=== PATIENT | male | born 1995 | race Caucasian/White ===

== ENCOUNTER 2017-01-16 07:33 | Emergency (ER) | payer BC ==
[~2017-01-16] VITALS: Ht 185.4 cm; Wt 92.9 kg
[~2017-01-16 07:33] MED LIST: ALBU1AER9 INH; CETI10TA84 PO; CLON0.5T3 PO; CTP/1 PO; SERT-234 PO; VANC1CAP19 PO
[2017-01-16 07:36] VITALS: Ht 185.4 cm; Wt 92.9 kg
--- NOTE | 2017-01-16 08:07 | EMERGENCY ROOM VISIT NOTE ---
History Report prepared by Landon: Tania Abebe Under the Supervision of: Dr. Hazel Hastings M.D. First contact with patient: 07:50 Chief Complaint: MENTAL HEALTH EVALUATION Stated Complaint: DEPRESSION, ANXIETY, SUICIDAL THOUGHTS History of Present Illness The patient is a 21 year old male who presents to the Emergency Room for a mental health evaluation. The patient states that he has a history of anxiety and depression. Last year he was admitted for a suicide attempt. He states that he used a knife. The patient after treatment states he was doing much better until recently he began to feel depressed and anxious. He went to [facility] for counseling and to meet with a psychiatrist. He notes he did not get along well with the psychiatrist. The patient states that last week his symptoms worsened. He was talking to his girlfriend about life plans and what he wanted to do with his future. He responded by saying he wants to take a bullet to his head. He denies threatening his girlfriend. The patient states that he does not have access to a gun. He notes he has also thought about using a knife again. The patient states how easy he thinks it would be to kill himself. He does note that he always has a passive desire to commit suicide but does not act on it. He wants to get this back to the safe level he tries to keep it at. The patient states he believes he is in a better place than he was last week when talking with his girlfriend but wants help getting back to baseline. The patient has recently been switched medications by the psychiatrist at [facility]. He states that he was taking Zoloft. He has not taken any medications recently due to insurance not covering. The patient denies alcohol or drug use. Source of History: patient Onset: last week Position: other (global) Quality: other (mental health evaluation) Timing: constant Note: The patient is experiencing depression, anxiety, suicidal ideation. He denies homicidal ideation. Review of Systems See HPI for pertinent positives & negatives. A total of 10 systems reviewed and were otherwise negative. Past Medical & Surgical Medical Problems: (1) Anxiety (2) Depression (3) Hypokalemia, gastrointestinal losses Family History Patient reports no known family medical history. Social History Smoking Status: Never Smoker Alcohol Use: occasionally Drug Use: none Marital Status: single, in relationship Housing Status: lives with roommate Occupation Status: [employer] student Current/Historical Medications No Active Prescriptions or Reported Meds Allergies Coded Allergies: No Known Allergies (Unverified , `, 01/16/17) Physical Exam Vital Signs Date Time Temp Pulse Resp B/P (MAP) Pulse Ox O2 Delivery O2 Flow Rate FiO2 01/16/17 12:57 36.7 60 18 148/87 98 01/16/17 11:08 60 18 148/87 98 Room Air 01/16/17 10:29 76 18 119/86 97 Room Air 01/16/17 07:36 36.7 70 18 144/91 99 Room Air Physical Exam Vital signs reviewed. General: Well-appearing male, in no significant distress. Repetitive blinking. HEENT: No scleral icterus, PERRLA, neck supple. Atraumatic. Cardiovascular: Regular rate and rhythm, no extra sounds. Pulmonary: Clear to auscultation bilaterally, normal work of breathing. Abdomen: Soft, nontender, nondistended, positive bowel sounds. Musculoskeletal: Atraumatic, no peripheral edema. Neurologic: Patient awake alert and oriented x 3 Skin: Warm, dry, no rash Psych: Passive suicidal thoughts, no homicidal ideation. Medical Decision & Procedures Laboratory Results 01/16/17 08:33 Red Blood Count 5.08, Mean Corpuscular Volume 85.8, Mean Corpuscular Hemoglobin 30.5, Mean Corpuscular Hemoglobin Concent 35.6, Mean Platelet Volume 9.2, Neutrophils (%) (Auto) 48.8, Lymphocytes (%) (Auto) 29.5, Monocytes (%) (Auto) 10.1, Eosinophils (%) (Auto) 10.5, Basophils (%) (Auto) 1.1, Neutrophils # (Auto ) 2.66, Lymphocytes # (Auto) 1.61, Monocytes # (Auto) 0.55, Eosinophils # (Auto ) 0.57, Basophils # (Auto) 0.06 01/16/17 08:33 Test 01/16/17 00:00 01/16/17 08:33 Urine Color DK YELLOW Urine Appearance CLEAR (CLEAR) Urine pH 5.0 (4.5-7.5) Urine Specific [place] 1.033 (1.000-1.030) Urine Protein NEG (NEG) Urine Glucose (UA) NEG (NEG) Urine Ketones NEG (NEG) Urine Occult Blood NEG (NEG) Urine Nitrite NEG (NEG) Urine Bilirubin NEG (NEG) Urine Urobilinogen NEG (NEG) Urine Leukocyte Esterase NEG (NEG) Urine Opiates Screen NEG (NEG) Urine Methadone, Qualitative NEG (NEG) Urine Barbiturates NEG (NEG) Urine Phencyclidine (PCP) Level NEG (NEG) Ur Amphetamine/Methamphetamine NEG (NEG) MDMA (Ecstasy) Screen NEG (NEG) Urine Benzodiazepines Screen NEG (NEG) Urine Cocaine Metabolite NEG (NEG) Urine Marijuana (THC) NEG (NEG) White Blood Count 5.45 K/uL (4.8-10.8) Red Blood Count 5.08 M/uL (4.7-6.1) Hemoglobin 15.5 g/dL (14.0-18.0) Hematocrit 43.6 % (42-52) Mean Corpuscular Volume 85.8 fL (80-100) Mean Corpuscular Hemoglobin 30.5 pg (25-34) Mean Corpuscular Hemoglobin Concent 35.6 g/dl (32-36) Platelet Count 307 K/uL (130-400) Mean Platelet Volume 9.2 fL (7.4-10.4) Neutrophils (%) (Auto) 48.8 % Lymphocytes (%) (Auto) 29.5 % Monocytes (%) (Auto) 10.1 % Eosinophils (%) (Auto) 10.5 % Basophils (%) (Auto) 1.1 % Neutrophils # (Auto) 2.66 K/uL (1.4-6.5) Lymphocytes # (Auto) 1.61 K/uL (1.2-3.4) Monocytes # (Auto) 0.55 K/uL (0.11-0.59) Eosinophils # (Auto) 0.57 K/uL (0-0.5) Basophils # (Auto) 0.06 K/uL (0-0.2) RDW Standard Deviation 42.3 fL (36.4-46.3) RDW Coefficient of Variation 13.4 % (11.5-14.5) Immature Granulocyte % (Auto) 0.0 % Immature Granulocyte # (Auto) 0.00 K/uL (0.00-0.02) Anion Gap 7.0 mmol/L (3-11) Est Creatinine Clear Calc Drug Dose 119.0 ml/min Estimated GFR () 109.9 Estimated GFR (Non- 94.8 BUN/Creatinine Ratio 17.1 (10-20) Calcium Level 8.8 mg/dl (8.5-10.1) Total Bilirubin 0.7 mg/dl (0.2-1) Direct Bilirubin < 0.1 mg/dl (0-0.2) Aspartate Amino Transf (AST/SGOT) 13 U/L (15-37) Alanine Aminotransferase (ALT/SGPT) 27 U/L (12-78) Alkaline Phosphatase 53 U/L (45-117) Total Protein 7.2 gm/dl (6.4-8.2) Albumin 3.8 gm/dl (3.4-5.0) Thyroid Stimulating Hormone (TSH) 1.590 uIu/ml (0.300-4.500) Salicylates Level < 1.7 mg/dl (2.8-20) Acetaminophen Level < 2 ug/ml (10-30) Ethyl Alcohol mg/dL < 3.0 mg/dl (0-3) Laboratory results per my review. ED Course 0801: Past medical records reviewed. The patient was evaluated in room A7. A complete history and physical examination was performed. 0914: The patient is medically cleared. Bed search will begin. 1230: The patient has been accepted for transfer to [place]. Medical Decision The patient is a 21 year old male who presents to the ED for mental health evaluation. Differentials include mood disorder, infection, hypoglycemia, electrolyte abnormalities, cardiac sources, intracerebral event, toxicologic, neurologic, as well as others were entertained. Medication Reconciliation: I attest that I have personally reviewed the patient' s current medication list. Blood Pressure Screening: Patient was found to have normal blood pressure on screening and does not require follow-up. This patient was evaluated and appeared to be in no significant distress. Patient was medically cleared for mental health evaluation. He was accepted at the [facility] for inpatient management on a voluntary basis. Secure transportation arrangements have been made. Impression Primary Impression: Suicidal ideation Scribe Attestation The scribe's documentation has been prepared under my direction and personally reviewed by me in its entirety. I confirm that the note above accurately reflects all work, treatment, procedures, and medical decision making performed by me. Departure Information Dispostion Mental Health Acute Care Prescriptions No Active Prescriptions or Reported Meds Referrals No Doctor, Assigned (PCP)
[2017-01-16 08:53] LABS: URINE APPEARANCE CLEAR (CLEAR); URINE BILIRUBIN NEG (NEG); URINE COLOR DK YELLOW; URINE NITRITE NEG (NEG); URINE SPECIFIC GRAVITY 1.033 (1.000-1.030); UROBILINOGEN NEG (NEG); ZZUR CULT IF INDIC CLEAN CATCH NO
[2017-01-16 08:56] LABS: MANUAL MICROSCOPIC REQUIRED? NO; REVIEW REQ? NO
[2017-01-16 08:57] LABS: BASO % 1.1 %; BASO ABS # 0.06 K/uL (0-0.2); COMPLETE YES; EOS % 10.5 %; HEMATOCRIT 43.6 % (42-52); LYMPH % 29.5 %; LYMPH ABS # 1.61 K/uL (1.2-3.4); MEAN CELL VOLUME 85.8 fL (80-100); MEAN CORPUSCULAR HEMOGLOBIN 30.5 pg (25-34); MEAN CORPUSCULAR HGB CONC 35.6 g/dl (32-36); MEAN PLATELET VOLUME 9.2 fL (7.4-10.4); MONO % 10.1 %; NEUT % 48.8 %; PLATELET COUNT 307 K/uL (130-400); RED BLOOD COUNT 5.08 M/uL (4.7-6.1); WHITE BLOOD COUNT 5.45 K/uL (4.8-10.8)
[2017-01-16 09:22] LABS: ALT/SGPT 27 U/L (12-78); AST/SGOT 13 U/L (15-37); BLOOD UREA NITROGEN 19 mg/dl (7-18); BUN/CREATININE RATIO 17.1 (10-20); CALCIUM 8.8 mg/dl (8.5-10.1); CARBON DIOXIDE 26 mmol/L (21-32); CHLORIDE 111 mmol/L (98-107); GLUCOSE 106 mg/dl (70-99); POTASSIUM 3.6 mmol/L (3.5-5.1); SODIUM 144 mmol/L (136-145)
[2017-01-16 09:29] LABS: ACETAMINOPHEN < 2 ug/ml (10-30)
[2017-01-16 09:30] LABS: BENZODIAZEPINE, URINE NEG (NEG); COCAINE,URINE NEG (NEG); PHENCYCLIDINE, URINE NEG (NEG)
[2017-01-16 09:32] LABS: ALKALINE PHOSPHATASE 53 U/L (45-117)
[2017-01-16 12:57] VITALS: BP 148/87; PULSE 60; TEMP 36.7; O2SAT 98
== END 2017-01-16 12:58 ==
LOC: C.EDB 07:36 → C.EDA 12:58
DX: F32.9 Major depressive disorder, single episode, unspecified (principal); R45.851 Suicidal ideations; F41.9 Anxiety disorder, unspecified